=== PATIENT | female | born 1950 | race Caucasian/White ===

== ENCOUNTER 2020-02-15 11:52 | Inpatient (IN) | payer BC, OTHER ==
[~2020-02-15] VITALS: Ht 157.5 cm; Wt 54.4 kg
--- NOTE | 2020-02-15 12:13 | NUR ---
BIBS TO ER BED 7. AAOX4. NOT IN RESP DISTRESS. AMBULATORY. CAME IN FOR ABDOMINAL PAIN W/ BLOODY STOOL. PER PT, ABDOMINAL PAIN STARTED ON WEDNESDAY W/ CRAMPING SENSATION. ON WEDNESDAY SHE STARTED TO HAVE LIGHT BLOOD WHEN HAVING BM. TODAY, SHE REPORTS THAT THE BLOOD IS ALOT AND NOTED CLOTS AND MUCOUS. ABDOMINAL PAIN STILL PRESENT ON LOWER ABD AND EPORTS NAUSEA. MD WAS AT THE BEDSIDE FOR EVAL. ORDERS RECEIVED, NOTED AND CARRIED OUT
[2020-02-15 12:25] LABS: BASOPHILS # (AUTO) 0.1 /CMM (0.0-0.2); BASOPHILS % (AUTO) 0.8 % (0.0-2.0); HEMATOCRIT 40 % (33-45); HEMOGLOBIN 13.4 g/dL (11.5-14.8); LYMPHOCYTES % (AUTO) 32.2 % (20.0-44.0); MEAN CORPUSCULAR HGB CONC 34 g/dl (31.0-36.0); MEAN CORPUSCULAR VOLUME 85 fL (82-100); MONOCYTES # (AUTO) 0.5 /CMM (0.1-1.30); MONOCYTES % (AUTO) 7.6 % (2.0-12.0); NEUTROPHILS # (AUTO) 3.5 /CMM (1.8-8.9); NEUTROPHILS % (AUTO) 56.4 % (43.0-81.0); PLATELET COUNT (AUTO) 199 /CMM (150-450); RED BLOOD CELL COUNT(AUTO) 4.64 MIL/uL (4.0-5.2); WHITE BLOOD COUNT (AUTO) 6.2 K/uL (4.3-11.0)
[2020-02-15 12:33] LABS: CALCIUM, SERUM 9.4 mg/dL (8.5-10.1); CREATININE 0.8 mg/dL (0.6-1.3); POTASSIUM 3.9 mmol/L (3.5-5.1)
[2020-02-15] MEDS ORDERED: KETOROLAC TROMETHAMINE 15 MG/ML VIAL ONE (12:35)
[2020-02-15] MEDS ORDERED: ONDANSETRON HCL/PF 4 MG/2 ML VIAL ONE (12:35)
[2020-02-15 12:39] LABS: ALBUMIN 4.2 g/dL (3.4-5.0); BILIRUBIN,DIRECT 0.1 mg/dL (0.0-0.2); BILIRUBIN,TOTAL 0.4 mg/dL (0.2-1.0); TOTAL PROTEIN, SERUM 7.5 g/dL (6.4-8.2)
--- NOTE | 2020-02-15 12:46 | NUR ---
PT TO CT ON [facility]
[2020-02-15] MEDS ORDERED: KETOROLAC TROMETHAMINE INJ 30 MG/ML VIAL IV ONE (13:00)
[2020-02-15] MEDS ORDERED: ONDANSETRON HCL/PF 4 MG/2 ML VIAL IVP ONE (13:00)
[2020-02-15] MEDS ORDERED: MORPHINE SULFATE INJ 4 MG/ML DISP.SYRIN ONE (13:23)
--- NOTE | 2020-02-15 13:28 | NUR ---
STILL COMPLAINING OF ABDOMINAL PAIN. MD MADE AWARE. ORDER RECEIVED TO GIVE MORPHINE 4MG IV X 1. NOTED AND CARRIED OUT.
[2020-02-15] MEDS ORDERED: PIPERACILLIN /TAZOBACTAM 3.375 G in IV D5W 50 ML IV ONE (13:30)
[2020-02-15] MEDS ORDERED: MORPHINE SULFATE INJ 2 MG/ML DISP.SYRIN IV ONE (13:30)
[2020-02-15] MEDS ORDERED: IV NS 0.9% 500 ML BAG IV ONE (13:30)
[2020-02-15] MEDS ORDERED: IV 1/2NS 1000 ML 1,000 ML IV PRN (13:33)
--- NOTE | 2020-02-15 13:36 | NUR ---
MINI BACCARAT DEALER FOR BLOOD DRAW AND EMT FOR EKG AT BEDSIDE
[2020-02-15] MEDS ORDERED: LEVOFLOXACIN 750 MG /D5W 150ML 150 ML IV ONE ×2 (13:41→14:00)
[2020-02-15] MEDS ORDERED: METRONIDAZOLE 500MG/ NS 100ML 100 ML IV ONE ×2 (13:41→14:00)
[2020-02-15] MEDS ORDERED: LEVOFLOXACIN 500 MG /D5W 100ML 500 MG in PREMIX 1 EA IV SCH (14:00)
[2020-02-15] MEDS ORDERED: HYDROCODONE/APAP 5/325MG 1 EACH TABLET PO PRN (14:00)
[2020-02-15] MEDS ORDERED: MAGNESIUM HYDROXIDE 30 ML UDC PO PRN (14:00)
[2020-02-15] MEDS ORDERED: ACETAMINOPHEN 325 MG TABLET PO PRN (14:00)
[2020-02-15] MEDS ORDERED: MORPHINE SULFATE INJ 2 MG/ML DISP.SYRIN IV PRN ×2 (14:00→22:00)
[2020-02-15] MEDS ORDERED: METRONIDAZOLE 500MG/ NS 100ML 500 MG in PREMIX 1 EA IV SCH (14:00)
[2020-02-15] MEDS ORDERED: ONDANSETRON HCL/PF 4 MG/2 ML VIAL IVP PRN (14:00)
[2020-02-15] MEDS ORDERED: Z GUARD REMEDY 2 OZ OINT TP PRN ×2 (14:00→15:30)
[2020-02-15] MEDS ORDERED: MAG HYDROX/AL HYDROX/SIMETH 30 ML UDC PO PRN (14:00)
[2020-02-15] MEDS ORDERED: ZOLPIDEM TARTRATE 5 MG TABLET PO PRN ×2 (14:00→15:30)
--- NOTE | 2020-02-15 14:02 | NUR ---
NURSING SUP GAVE M/S BED 322-1.
--- NOTE | 2020-02-15 14:12 | NUR ---
REPORT GIVEN TO VIKI TERRY FOR KALYN.
--- NOTE | 2020-02-15 14:36 | NUR ---
DR PATEL AT PT BEDSIDE.
--- NOTE | 2020-02-15 15:15 | NUR ---
Received pt from ER. Pt awake, alert and oriented x 4. On room air, saturating well, respirations even and unlabored, no signs of respiratory distress noted. Ambulatory with steady gait. Head to toe assessment completed, skin intact. Pt reports she has had abdominal pain x 4 days since Wednesday. Rates the pain as a 8/10, states it comes and goes, nothing aggravates it. Pt reports she hasn't had a bowel movement in 4 days but feels as if she is passing flatus. Pt states she notices blood from her rectum at times. IV site on left ac G18 intact, patent, with saline lock in place. Introduced self to pt and discussed plan of care.
--- NOTE | 2020-02-15 15:25 | NUR ---
PT TRANSPORTED TO UNIT ON [address] WITH EMT AND RN AT THE BEDSIDE W/ ACLS PROTOCOL. NAD DURING TRANSPORT. PT AMBULATED FROM [facility] TO BED ON STEADY GAIT W/O ASSIST.
[2020-02-15] MEDS: IV 1/2NS 1000 ML 1,000 ML IV PRN (18:51)
--- NOTE | 2020-02-15 19:05 | NUR ---
MS RN NOTES RECEIVED PT IN BED AWAKE AND ABLE TO MAKE NEEDS KNOWN. PT A/O X3. RESPIRATIONS EVEN AND UNLABORED WITH NO S/S OF ACUTE DISTRESS OR SOB NOTED. NO COMPLAINTS OF PAIN AT THIS TIME. PT NOTED WITH LAC IV PATENT AND INTACT. SAFETY MEASURES IN PLACE WITH BED IN LOWEST LOCKED POSITION WITH SIDE RAILS UP X2. CALL LIGHT WITHIN REACH. WILL CONTINUE TO MONITOR.
[2020-02-15 20:00] VITALS: BP 136/83
[2020-02-15] MEDS: METRONIDAZOLE 500MG/ NS 100ML 500 MG in PREMIX 1 EA IV SCH (20:44)
--- NOTE | 2020-02-15 23:00 | NUR ---
MS RN NOTES PT NOTED WITH LABS CANCELED, MADE AWARE WITH ORDERS TO RESTART ORDERS. WILL CONTINUE TO MONITOR.
[2020-02-16] MEDS: METRONIDAZOLE 500MG/ NS 100ML 500 MG in PREMIX 1 EA IV SCH ×3 (05:32→20:13)
[2020-02-16 06:51] LABS: BASOPHILS % (AUTO) 0.6 % (0.0-2.0); EOSINOPHILS % (AUTO) 5.4 % (0.0-6.0); HEMATOCRIT 37 % (33-45); HEMOGLOBIN 12.5 g/dL (11.5-14.8); LYMPHOCYTES # (AUTO) 1.8 /CMM (0.8-4.8); LYMPHOCYTES % (AUTO) 33.5 % (20.0-44.0); MEAN CORPUSCULAR HGB CONC 34 g/dl (31.0-36.0); MEAN CORPUSCULAR VOLUME 84 fL (82-100); MONOCYTES # (AUTO) 0.5 /CMM (0.1-1.30); MONOCYTES % (AUTO) 10.1 % (2.0-12.0); NEUTROPHILS # (AUTO) 2.7 /CMM (1.8-8.9); NEUTROPHILS % (AUTO) 50.4 % (43.0-81.0); PLATELET COUNT (AUTO) 176 /CMM (150-450); RED BLOOD CELL COUNT(AUTO) 4.34 MIL/uL (4.0-5.2); WHITE BLOOD COUNT (AUTO) 5.4 K/uL (4.3-11.0)
[2020-02-16 07:12] LABS: ALBUMIN 3.6 g/dL (3.4-5.0); BILIRUBIN,TOTAL 0.5 mg/dL (0.2-1.0); CALCIUM, SERUM 8.7 mg/dL (8.5-10.1); CREATININE 0.9 mg/dL (0.6-1.3); MAGNESIUM 1.9 mg/dL (1.8-2.4); PHOSPHORUS 4.6 mg/dL (2.5-4.9); POTASSIUM 3.8 mmol/L (3.5-5.1); TOTAL PROTEIN, SERUM 6.5 g/dL (6.4-8.2)
--- NOTE | 2020-02-16 07:46 | NUR ---
MS RN NOTES PT IN BED AWAKE AND ABLE TO MAKE NEEDS KNOWN. PT A/O X3. RESPIRATIONS EVEN AND UNLABORED WITH NO S/S OF ACUTE DISTRESS OR SOB NOTED THROUGHOUT SHIFT. NO COMPLAINTS OF PAIN AT THIS TIME. PT NOTED WITH LAC IV PATENT AND INTACT INFUSING 1/2 NS @75CC/HR. SAFETY MEASURES IN PLACE WITH BED IN LOWEST LOCKED POSITION WITH SIDE RAILS UP X2. CALL LIGHT WITHIN REACH. WILL ENDORSE TO ONCOMING NURSE FOR KALYN.
[2020-02-16 08:00] VITALS: BP 121/70
--- NOTE | 2020-02-16 08:00 | NUR ---
m/s yardage estimator: initial assessment received pt in bed awake, a/ox4. no c/o n/v or abdominal discomfort. pt remains npo. continue on iv fluids, infusing well. instructed to call for assistance. will continue to monitor.
--- NOTE | 2020-02-16 09:45 | NUR ---
m/s crocodile farmer: md visit seen and examined by dr. lanza with verbal order to start pt on clear liquid now, full liquid for lunch, and soft diet for dinner. pt for d'c planning if tolerates diet. pt verbalized understanding. pt wants to be disconnected from her iv fluids. instructed to call for assistance. will continue to monitor.
[2020-02-16] MEDS ORDERED: IBUPROFEN 400 MG TABLET PO ONE (10:30)
--- NOTE | 2020-02-16 10:30 | NUR ---
m/s practice managers: notes pt tolerated her clear liquid diet. no c/o n/v or abdominal discomfort. diet advance to full for lunch. instructed to call for assistance. will continue to monitor.
--- NOTE | 2020-02-16 13:45 | NUR ---
m/s weave room supervisor: notes pt tolerated full liquid diet. no c/o n/v or any abdominal discomfort. pt for d'c planning after dinner per md. instructed to call for assistance.
[2020-02-16] MEDS ORDERED: LEVOFLOXACIN 500 MG /D5W 100ML 500 MG in PREMIX 1 EA IV SCH (14:00)
[2020-02-16] MEDS ORDERED: LEVOFLOXACIN 750 MG /D5W 150ML 750 MG in PREMIX 1 EA IV SCH (14:00)
--- NOTE | 2020-02-16 15:00 | NUR ---
m/s monitor tech: notes resting comfortable in bed with no distress noted.
[2020-02-16 15:29] LABS: THYROID STIMULATING HORMONE 2.625 uIU/mL (0.358-3.74)
[2020-02-16 16:00] VITALS: BP 147/51
--- NOTE | 2020-02-16 17:15 | NUR ---
m/s financial services assistant: notes pt tolerated her diet, but feels bloated and still wants to go home. pt ask me to remove her iv. h/l remove with tip intact. page dr. lanza and made aware.
[2020-02-16] MEDS ORDERED: ZOLPIDEM TARTRATE 10 MG TABLET PO PRN (17:30)
--- NOTE | 2020-02-16 17:30 | NUR ---
m/s motor checker: md visit dr. lanza at bedside and change her mind and wants to stay for the night. inserted new iv to left forearm, gauge #22. pt doesn't want to be connected to iv fluids still. pt request for ayah for tonight. order acknowledged.
--- NOTE | 2020-02-16 19:00 | NUR ---
m/s dehydration plant operator: notes report given to rangel (rn) for continuity of care.
--- NOTE | 2020-02-16 19:39 | NUR ---
MS RN OPENING NOTES RECEIVED PATIENT RESTING IN BED COMFORTABLY; A/OX4; AMBULATORY AND ABLE TO MAKE NEEDS KNOWN; BREATHING EVEN AND UNLABORED; NO SOB NOTED, PATIENT TOLERATING ROOM AIR WELL; LFA #22 INTACT AND PATENT; FLUSHING WELL; NO S/S OF REDNESS OR INFILTRATION; PER AM SHIFT, PATIENT DOES NOT WANT IVF; SAFETY PRECAUTIONS IMPLEMENTED; BED LOCKED IN LOW POSITION; SIDE RAILS X2; CALL LIGHT WITHIN REACH; WILL CONT TO MONITOR
[2020-02-16 20:00] VITALS: BP 144/78
[2020-02-16] MEDS: IV 1/2NS 1000 ML 1,000 ML IV PRN (22:06)
[2020-02-17] MEDS: METRONIDAZOLE 500MG/ NS 100ML 500 MG in PREMIX 1 EA IV SCH (04:01)
--- NOTE | 2020-02-17 06:40 | NUR ---
MS RN CLOSING NOTES PATIENT RESTING IN BED COMFORTABLY; A/OX4; BREATHING EVEN AND UNLABORED; PATIENT TOLERATING ROOM AIR WELL; NO SOB NOTED; NO DISTRESS NOTED; PATIENT ABLE TO MAKE NEEDS KNOWN; [place] FA #22 INTACT AND PATENT, INFUSING NS @ 75ML/HR; PATIENT TOLERATING IVF WELL; ALL NEEDS RENDERED; SAFETY PRECAUTIONS IMPLEMENTED; BED LOCKED IN LOW POSITION; SIDE RAILS X2; CALL LIGHT WITHIN REACH; WILL ENDORSE KALYN TO ONCOMING SHIFT
--- NOTE | 2020-02-17 07:30 | NUR ---
RECEIVED PT. THIS AM ALERT AND ORIENTED X4.NO COMPLAINTS.WAITING TO GO HOME.
[2020-02-17 08:00] VITALS: BP 130/74
--- NOTE | 2020-02-17 11:20 | NUR ---
MARILYN PSYCHOLOGY FELLOW IN DISCHARGING PT. GIVEN RXS. ALL PAPERS SIGNED.HEP LOCK OUT.TAKEN TO LOBBY BY ELIANA MOREJON.VERB. UNDERSTANDING OF ALL INSTRUCTIONS.
[2020-02-17] MEDS ORDERED: LEVO750T21 PO (11:50)
[2020-02-17] MEDS ORDERED: ACET325T53 PO (11:50)
[2020-02-17] MEDS ORDERED: HYDR-3972 PO (11:50)
[2020-02-17] MEDS ORDERED: MAGN400O6 PO (11:50)
[2020-02-17] MEDS ORDERED: MAG30ORA PO (11:50)
[2020-02-17] MEDS ORDERED: HYDR-4384 PO (19:30)
== END 2020-02-17 11:30 | disposition home or self-care (01) | DRG 379 ==
LOC: ER 11:52 → MED 15:47
PROVIDERS: ADMIT Internal Medicine; ATTEND Nurse Practitioner Acute Care
DX: K57.93 Diverticulitis of intestine, part unspecified, without perforation or abscess with bleeding (principal); Z90.710 Acquired absence of both cervix and uterus; Z98.890 Other specified postprocedural states; K57.90 Diverticulosis of intestine, part unspecified, without perforation or abscess without bleeding
CPT/HCPCS: 36415; 71045-TC; 80048-TC; 80053-TC; 80061-TC; 80076-TC; 83605-TC; 83690-TC; 83735-TC; 84100-TC; 84443-TC; 84484-TC; 85025-TC; 87040-TC; 87081-TC; A4216; G0378; J1885; J1956; J2270; J2405; J2543; J3490; J7040; J7060